=== PATIENT | female | born 1985 | race Two or more races ===

== ENCOUNTER 2017-12-06 10:18 | Inpatient (IN) | payer OTHER ==
[2017-12-06] MEDS ORDERED: PROMETHAZINE HCL 25 MG/1 ML VIAL IVPUSH ONE (12:00)
[2017-12-06] MEDS ORDERED: DEXTROSE 5%-LACTATED RINGERS 1,000 ML IV SCH (12:00)
[2017-12-06] MEDS ORDERED: BUTORPHANOL TARTRATE 1 MG/ML VIAL IVPUSH ONE (12:00)
[2017-12-06 12:16] VITALS: BMI 26.0
[2017-12-06 12:39] LABS: BASO % 0.5 % (0-2.0); HEMATOCRIT 39.7 % (32.4-45.2); HEMOGLOBIN 13.6 GM/dL (10.7-15.3); LYMPH % 10.5 % (8-40); MCH 31.1 pg (25.7-33.7); MCHC 34.2 g/dl (32.0-36.0); MEAN CELL VOLUME 90.8 fl (80-96); MEAN PLT VOLUME 11.1 fl (7.5-11.1); MONO % 3.3 % (3.8-10.2); NEUT % 85.7 % (42.8-82.8); PLATELET COUNT 167 K/MM3 (134-434); RBC 4.37 M/mm3 (3.60-5.2); RDW 13.4 % (11.6-15.6); WHITE BLOOD COUNT 11.5 K/mm3 (4.0-10.0)
[2017-12-06 12:53] LABS: INR 0.88 (0.82-1.09); PROTHROMBIN TIME (PATIENT) 9.9 SEC (9.7-13.0)
[2017-12-06 12:56] LABS: ACTIVATED PTT 29.5 SECONDS (26.9-34.4)
--- NOTE | 2017-12-06 12:58 | HP ---
Past Medical History - Primary Care Physician PCP:: Taras Carrasco - Admission Chief Complaint: 40 .1 weeks, labor History of Present Illness: 32 yo f g 1 p0 40.1 weeks, labor, cx 4 cm 100 vx -3 mi, fhr cat1 , irregular contraction History Source: Patient - Past Medical History ...: 1 ...Para: 0 ...Term: 0 ...: 0 ...Spon : 0 ...Induced : 0 ...Multiple Gestation: 0 ...LMP: 02/28/17 ... Weeks Gestation by Dates: 40.1 ...EDC by Dates: 12/05/17 ...EDC by Sono: 12/05/17 - Past Surgical History Hx Myomectomy: No Hx Transabdominal Cerclage: No - Smoking History Smoking history: Never smoked Have you smoked in the past 12 months: No - Alcohol/Substance Use Hx Alcohol Use: No - Social History History of Recent Travel: No Home Medications - Allergies Allergies/Adverse Reactions: Allergies Allergy/AdvReac Type Severity Reaction Status Date / Time No Known Allergies Allergy Verified 12/06/17 10:32 - Home Medications Home Medications: Ambulatory Orders Vit/Iron Fum/Folic AC [ Tablet] 1 each PO HS 12/05/17 Review of Systems - Review of Systems Constitutional: reports: No Symptoms Eyes: reports: No Symptoms HENT: reports: No Symptoms Neck: reports: No Symptoms Cardiovascular: reports: No Symptoms Respiratory: reports: No Symptoms Gastrointestinal: reports: No Symptoms Genitourinary: reports: No Symptoms Breasts: reports: No Symptoms Reported Musculoskeletal: reports: No Symptoms Integumentary: reports: No Symptoms Neurological: reports: No Symptoms Endocrine: reports: No Symptoms Hematology/Lymphatic: reports: No Symptoms Psychiatric: reports: No Symptoms Physical Exam - Maternity Vital Signs: Vital Signs Temperature 98.3 F 12/06/17 11:15 Pulse Rate 70 12/06/17 11:15 Respiratory Rate 20 12/06/17 11:15 Blood Pressure 117/70 12/06/17 11:15 O2 Sat by Pulse Oximetry (%) Constitutional: Yes: Well Nourished, No Distress, Calm Eyes: Yes: WNL, Conjunctiva Clear, EOM Intact HENT: Yes: WNL, Atraumatic, Normocephalic Neck: Yes: WNL, Supple, Trachea Midline Cardiovascular: Yes: WNL, Regular Rate and Rhythm Breast(s): Yes: WNL - Abdominal Exam/OB Fundal Height: 38 Number of Fetuses: Single Presentation: Vertex Contractions: Yes Regularity: Irregular Intensity: Mod/Strong Monitor Mode: External Heart Rate Location: [facility] Category: I - Vaginal Exam/OB Vaginal Bleediing: No Speculum Exam: No Dilatation (cm): 4 cm Effacement (%): 100 Amniotic Membrane Status: Intact Presentation: Vertex/Position Station: -3 - Physical Exam Musculoskeletal: Yes: WNL Extremities: Yes: WNL Edema: Yes Edema: LLE: Trace, RLE: Trace Deep Tendon Reflex Grade: Normal +2 Psychiatric: Yes: WNL - Labs Lab Results: CBC, BMP 12/06/17 11:55 Hemorrhage Risk Assessment - Risk Factors Medium Risk Factors: Yes: None High Risk Factors: Yes: None Risk Score: 1 Risk Level: Medium Risk Problem List - Problems (1) Postmaturity , 40-42 weeks gestation Code(s): O48.0 - POST-TERM (2) Labor established Code(s): [id number] - Assessment/Plan admit, fhm, pain management
[2017-12-06] MEDS ORDERED: ELECTROLYTE-148 SOLN 1,000 ML IV SCH ×3 (13:10→14:10)
[2017-12-06] MEDS ORDERED: FENTANYL/BUPIVACAINE/NS/PF - PCEA - 50 ML DISP.SYRIN EP ONE ×2 (13:10→18:53)
[2017-12-06 13:30] LABS: ANION GAP 12 (8-16); BLOOD UREA NITROGEN 8 mg/dL (7-18); CALCIUM 8.9 mg/dL (8.5-10.1); CHLORIDE 104 mmol/L (98-107); CO2 20 mmol/L (21-32); CREATININE 0.5 mg/dL (0.55-1.02); GLUCOSE,RANDOM 99 mg/dL (74-106); POTASSIUM 3.9 mmol/L (3.5-5.1); SODIUM 136 mmol/L (136-145)
[2017-12-06] MEDS ORDERED: NALOXONE HCL 0.4 MG/ML VIAL IVPUSH PRN (13:34)
[2017-12-06] MEDS ORDERED: LIDO 2%/EPI 1:200000 PRESRVFRE (20 ML SDVIAL) ONE (13:38)
[2017-12-06] MEDS ORDERED: BUPIVACAINE HCL/PF 0.25% (2.5MG/ML) 10 ML VIAL ONE ×2 (13:38→21:11)
[2017-12-06] MEDS ORDERED: FENTANYL/BUPIVACAINE/NS/PF - PCEA - 50 ML DISP.SYRIN EP SCH (13:45)
[2017-12-06] MEDS ORDERED: OXYTOCIN 30 UNITS in 0.9% NS 30 UNIT/500 ML INFUS.BAG IVPB SCH (14:00)
--- NOTE | 2017-12-06 15:40 | PN ---
Progress Note (short form) - Note Progress Note: 2p, cler, fhr cat i, irregular contraction, had epidural pm cx 4 cm 80 vx -2 arom Problem List - Problems (1) Postmaturity , 40-42 weeks gestation Code(s): O48.0 - POST-TERM (2) Labor established Code(s): [id number] -
[2017-12-06] MEDS ORDERED: OXYTOCIN 30 UNITS in 0.9% NS 30 UNIT/500 ML INFUS.BAG IVPB ONE (15:51)
--- NOTE | 2017-12-06 18:58 | PN ---
Progress Note (short form) - Note Progress Note: cx 7 cm, 80 vx -2 mr, fhr cat 1, regular contraction Problem List - Problems (1) Postmaturity , 40-42 weeks gestation Code(s): O48.0 - POST-TERM (2) Labor established Code(s): [id number] -
--- NOTE | 2017-12-06 21:20 | PN ---
Progress Note (short form) - Note Progress Note: cx 8 cm. 80 .op 1-/0 station, fhr cat 1, wants epidural top off Problem List - Problems (1) Postmaturity , 40-42 weeks gestation Code(s): O48.0 - POST-TERM (2) Labor established Code(s): [id number] -
--- NOTE | 2017-12-06 22:57 | PN ---
Progress Note (short form) - Note Progress Note: cx 8 cm, transverse nid pelvis arrest,, no further dilation advised c/s, case discussed via tape librarian with patient and her , FHR cat 1 Problem List - Problems (1) Postmaturity , 40-42 weeks gestation Code(s): O48.0 - POST-TERM (2) Labor established Code(s): [id number] -
[2017-12-06] MEDS ORDERED: CITRIC ACID/SODIUM CITRATE 30 ML UNIT-DOSE CUP PO ONE (23:00)
[2017-12-06] MEDS ORDERED: ceFAZolin SODIUM 1 GM VIAL ONE ×2 (23:33→23:40)
[2017-12-06] MEDS ORDERED: morphine SULFATE/Preservative Free 0.5 MG/ML (1cc Syringe) ONE ×6 (23:33)
[2017-12-06] MEDS ORDERED: MIDAZOLAM HCL 2 MG/2 ML SINGLE DOSE VIAL ONE (23:58)
[2017-12-07] MEDS ORDERED: BENZOCAINE 28 GM HEMORRHOIDAL OINTMENT PR PRN (00:12)
[2017-12-07] MEDS ORDERED: METHYLERGONOVINE MALEATE 0.2 MG/1 ML AMP IM PRN (00:12)
[2017-12-07] MEDS ORDERED: diphenhydrAMINE HCL 25 MG CAPSULE (FP) PO PRN (00:12)
[2017-12-07] MEDS ORDERED: IBUPROFEN 800 MG/8 ML IJ IVPB PRN ×2 (00:12→00:13)
[2017-12-07] MEDS ORDERED: BENZOCAINE 20% 57 GM BOTTLE TP PRN (00:12)
[2017-12-07] MEDS ORDERED: oxyCODONE HCL 5 MG TABLET PO PRN (00:12)
[2017-12-07] MEDS ORDERED: WITCH HAZEL 50% (TUCKS) 40 PAD/JAR PAD TP PRN (00:12)
[2017-12-07] MEDS ORDERED: ONDANSETRON 4 MG/2 ML VIAL IVPUSH PRN (00:13)
[2017-12-07] MEDS ORDERED: DEXTROSE 5%-LACTATED RINGERS 1,000 ML IV SCH (00:15)
[2017-12-07] MEDS ORDERED: OXYTOCIN 20 UNITS in 0.9% NS 20 UNIT/1,000 ML INFUS.BAG IV SCH (00:15)
[2017-12-07 00:52] LABS: ARTERIAL BLOOD GAS BASE EXCESS -3.4 meq/l (-2-2); ARTERIAL BLOOD GAS PCO2 52.7 mmHg (35-45); ARTERIAL BLOOD GAS pH 7.27 (7.35-7.45)
[2017-12-07 01:10] LABS: VENOUS PC02 38.4 mmHg (38-52); VENOUS PH 7.39 (7.32-7.42); VENOUS PO2 28.7 mmHg (28-48)
[2017-12-07 01:11] LABS: ARTERIAL BLD GAS O2 SATURATION 26.8 % (90-98.9); ARTERIAL BLOOD GAS PO2 19.8 mmHg (80-100)
[2017-12-07] MEDS ORDERED: OXYTOCIN 20 UNITS in 0.9% NS 20 UNIT/1,000 ML INFUS.BAG IV ONE (02:16)
[2017-12-07] MEDS ORDERED: ceFAZolin SODIUM 1 GM VIAL ONE ×2 (05:01→11:34)
[2017-12-07] MEDS ORDERED: DEXTROSE 5%-WATER - 50 ML IVPB ONE ×2 (05:01→11:34)
[2017-12-07] MEDS: CEFAZOLIN 1 GM in DEXTROSE 5%-WATER - 50 ML IVPB SCH ×2 (05:25→11:55)
--- NOTE | 2017-12-07 06:23 | PN ---
Post Progress Note - Subjective Subjective: c/o pain mild scale 3-4 c/o itching Post Day: 1 Type of Delivery: Primary C/S Vital Signs: Vital Signs Temperature 100.2 F H 12/07/17 03:00 Pulse Rate 82 12/07/17 03:00 Respiratory Rate 18 12/07/17 05:00 Blood Pressure 127/71 12/07/17 03:00 O2 Sat by Pulse Oximetry (%) 100 12/07/17 02:00 6.00 AM temp 99.2 Breast Exam: Yes: Soft, Other (plans to BF ). No: Engorged Uterus: Yes: Fundus Firm, Fundus below umbilicus, Non-tender Incision: Yes: Dressing dry and intact. No: Redness, Oozing Abdomen/GI: Yes: Abdomen soft (BS active ), Tender, Tolerating PO (pt has not taken po fluids yet ). No: Abdominal Distention, Passing flatus Lochia: Yes: Rubra Lochia, amount: Moderate Extremities: Yes: Calves non-tender Perineum: Yes: Intact Activity: Other (pt in bed with ware & scd in situ ) - Labs Labs: CBC WBC 11.5 K/mm3 (4.0-10.0) H 12/06/17 11:55 RBC 4.37 M/mm3 (3.60-5.2) 12/06/17 11:55 Hgb 13.6 GM/dL (10.7-15.3) 12/06/17 11:55 Hct 39.7 % (32.4-45.2) 12/06/17 11:55 MCV 90.8 fl (80-96) 12/06/17 11:55 MCH 31.1 pg (25.7-33.7) 12/06/17 11:55 MCHC 34.2 g/dl (32.0-36.0) 12/06/17 11:55 RDW 13.4 % (11.6-15.6) 12/06/17 11:55 Plt Count 167 K/MM3 (134-434) 12/06/17 11:55 MPV 11.1 fl (7.5-11.1) 12/06/17 11:55 Absolute Neuts (auto) 9.9 # 12/06/17 11:55 Neutrophils % 85.7 % (42.8-82.8) H 12/06/17 11:55 Lymphocytes % 10.5 % (8-40) 12/06/17 11:55 Monocytes % 3.3 % (3.8-10.2) L 12/06/17 11:55 Eosinophils % 0.0 % (0-4.5) 12/06/17 11:55 Basophils % 0.5 % (0-2.0) 12/06/17 11:55 Nucleated RBC % 0 % (0-0) 12/06/17 11:55 Other Findings, Remarks: RS CTA I/O , 900/800 ml , ware draining well Problem List - Problems (1) delivery delivered Code(s): O82 - ENCOUNTER FOR DELIVERY WITHOUT INDICATION (2) examination following delivery Code(s): Z39.2 - ENCOUNTER FOR ROUTINE FOLLOW-UP Assessment/Plan post c/section day # 1, 6 hrs post op stable , mild elevation of temp possible due to c/section due to failure to progress in labor . Plan cbc today ct IV Ancef encourage po fluids , ambulation after catheter is taken out encourage deep breathing
--- NOTE | 2017-12-07 08:39 | PN ---
Progress Note (short form) - Note Progress Note: Post op day #1.S/p c Section under epidural anesthesia with duramorph uneventful.Patient stable and haslittle pain for which she is on medication.No any anesthesia related problem.Patient DC from the anesthesia care.
--- NOTE | 2017-12-07 08:57 | OP ---
DATE OF OPERATION: 12/06/2017 PREOPERATIVE DIAGNOSIS: , 40 weeks, labor; failure to dilate and transverse pelvic arrest. SURGEON: Jaylyn Carrasco M.D. PIPING MANAGER: ANESTHESIA: Epidural. ANESTHESIOLOGIST: Mendel Cherry M.D. ESTIMATED BLOOD LOSS: 500 mL. FINDINGS: Baby's Apgars were 9 and 9. ROT position. DESCRIPTION OF PROCEDURE: The patient was taken to the operating room and had adequate epidural anesthesia. Abdomen and perineum were prepped and draped. A Pfannenstiel abdominal skin incision was made. The abdominal wall was cut layer by layer, until the peritoneum was exposed and incised. Upon entering the abdominal cavity, the lower uterine segment was identified and the uterovesical fold of peritoneum established. The bladder was pushed down. Then, with the lower blade of the Rogerio retractor in the pelvis, a low transverse uterine incision was made. The incision was extended laterally. The amniotic sac was entered. Clear fluid. Head delivered from right occiput transverse position with a large caput. Nasopharynx was suctioned and live baby was delivered. Apgars were 9 and 9. The placenta was delivered manually. The uterine cavity was cleaned of all remaining tissue. The uterine incision was closed in 2 layers, the 1st layer with 0 Biosyn continuous suture and the 2nd layer with 0 Biosyn imbricating the 1st layer. The bladder flap was closed with 0 Biosyn continuous suture. Both tubes and ovaries were checked and were normal. No active bleeding was seen. All the lap, sponge and instrument counts were correct. Then the peritoneum was closed with 0 Biosyn continuous suture. The muscles were brought together with interrupted suture of 0 Biosyn. The fascia was closed with 0 Biosyn continuous suture, the subcutaneous fat with interrupted suture of 0 Biosyn, and the skin was closed with qi. The patient tolerated the procedure well, and left the OR in good condition. JAYLYN CARRASCO M.D. [id number]
[2017-12-08] MEDS ORDERED: BISACODYL 10 MG SUPP.RECT PR PRN (00:13)
[2017-12-08] MEDS: ACETAMINOPHEN 325 MG TABLET (FP) PO PRN ×2 (08:59→18:00)
[2017-12-08] MEDS: oxyCODONE HCL 5 MG TABLET PO PRN ×3 (09:00→22:14)
[2017-12-08] MEDS: SIMETHICONE 80 MG TAB.CHEW (FP) PO PRN ×3 (09:01→22:14)
[2017-12-08 09:07] LABS: BASO % 0.2 % (0-2.0); EOS % 0.2 % (0-4.5); HEMOGLOBIN 12.8 GM/dL (10.7-15.3); LYMPH % 7.9 % (8-40); MCH 31.9 pg (25.7-33.7); MCHC 34.7 g/dl (32.0-36.0); MEAN PLT VOLUME 11.3 fl (7.5-11.1); MONO % 4.5 % (3.8-10.2); NEUT % 87.2 % (42.8-82.8); PLATELET COUNT 156 K/MM3 (134-434); RBC 4.02 M/mm3 (3.60-5.2); RDW 13.8 % (11.6-15.6); WHITE BLOOD COUNT 16.6 K/mm3 (4.0-10.0)
--- NOTE | 2017-12-08 09:49 | PN ---
Post Progress Note - Subjective Subjective: 32 yo Para 1 status post primary , seen and evaluated. Doing well. Post Day: 1 Type of Delivery: Primary C/S Vital Signs: Vital Signs Temperature 98 F 12/07/17 22:00 Pulse Rate 78 12/07/17 22:00 Respiratory Rate 18 12/07/17 22:00 Blood Pressure 106/59 12/07/17 22:00 O2 Sat by Pulse Oximetry (%) 100 12/07/17 02:00 Breast Exam: Yes: Soft Uterus: Yes: Fundus above umbilicus Incision: Yes: Dressing dry and intact Lochia: Yes: Rubra Lochia, amount: Small Extremities: Yes: Calves non-tender Perineum: Yes: Intact Activity: Ambulating - Labs Labs: CBC WBC 16.6 K/mm3 (4.0-10.0) H D 12/08/17 06:00 RBC 4.02 M/mm3 (3.60-5.2) 12/08/17 06:00 Hgb 12.8 GM/dL (10.7-15.3) 12/08/17 06:00 Hct 37.0 % (32.4-45.2) 12/08/17 06:00 MCV 92.0 fl (80-96) 12/08/17 06:00 MCH 31.9 pg (25.7-33.7) 12/08/17 06:00 MCHC 34.7 g/dl (32.0-36.0) 12/08/17 06:00 RDW 13.8 % (11.6-15.6) 12/08/17 06:00 Plt Count 156 K/MM3 (134-434) 12/08/17 06:00 MPV 11.3 fl (7.5-11.1) H 12/08/17 06:00 Absolute Neuts (auto) 14.5 # 12/08/17 06:00 Neutrophils % 87.2 % (42.8-82.8) H 12/08/17 06:00 Lymphocytes % 7.9 % (8-40) L D 12/08/17 06:00 Monocytes % 4.5 % (3.8-10.2) 12/08/17 06:00 Eosinophils % 0.2 % (0-4.5) D 12/08/17 06:00 Basophils % 0.2 % (0-2.0) 12/08/17 06:00 Nucleated RBC % 0 % (0-0) 12/08/17 06:00 Assessment/Plan Status post primary Stable Ambulation Analgesia as needed Continue routine post op care
--- NOTE | 2017-12-08 16:37 | PATH ---
Surgical Pathology Report Patient Name: EDUARDO HOUSE Med. Rec. 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 Specimen(s) Received PLACENTA Clinical History 40.1 wks arrest of dilatation Final Diagnosis PLACENTA: THIRD TRIMESTER PLACENTA. TRIVASCULAR CORD. MEMBRANES WITH NO DIAGNOSTIC ABNORMALITIES. Electronically Signed Iain Hernandez M.D. Gross Description The specimen is received fresh labeled placenta and is a 620 gram, 20 x 15.5 x 3 cm. placenta with attached membranes and umbilical cord. The attached membranes are mucoid and insert marginally. The centrally attached umbilical cord measures 19 cm. in length and averages 1.2 cm. in diameter. No true knots or strictures are identified. Cut surface of the umbilical cord reveals 3 vessels. The surface is simms-blue with minimal fibrin deposition and appropriate caliber vessels. The maternal surface is red-brown with focal defects. Sectioning reveals red-brown, spongy parenchyma. No lesions are identified. Parts Clerk Plant Maintenance sections are submitted in three cassettes as follows: 1- membrane rolls and umbilical cord; 2-3- full thickness sections of placenta. AE/12/07/2017 ebram/12/07/2017
[2017-12-08] MEDS: IBUPROFEN 600 MG TABLET (FP) PO PRN (22:11)
--- NOTE | 2017-12-09 06:49 | PN ---
Progress Note (short form) - Note Progress Note: pod 3 s/p primary c/s , doing well,ambulating, passing gas CBC, BMP 12/08/17 06:00 12/06/17 11:55 Last Vital Signs Temp Pulse Resp BP Pulse Ox 98.4 F 71 18 118/68 100 12/08/17 21:00 12/08/17 21:00 12/08/17 21:00 12/08/17 21:00 12/07/17 02:00 abdomen soft, no distension, no cva incision dry, clean no calf tenderness plan cbc, ambulate Problem List - Problems (1) Postmaturity , 40-42 weeks gestation Code(s): O48.0 - POST-TERM (2) Labor established Code(s): [id number] -
[2017-12-09 10:26] VITALS: BP 122/79; PULSE 66; TEMP 98.9
[2017-12-09] MEDS: IBUPROFEN 600 MG TABLET (FP) PO PRN (11:03)
[2017-12-09] MEDS: ACETAMINOPHEN 325 MG TABLET (FP) PO PRN (11:04)
[2017-12-09] MEDS ORDERED: SENNOSIDES/DOCUSATE COMBO (SENNA PLUS) TABLET (UD) PO PRN (22:00)
--- NOTE | 2017-12-11 09:10 | DS ---
Physical Exam-WELLNESS SPECIALIST Vital Signs: Vital Signs Temperature 98.9 F 12/09/17 09:00 Pulse Rate 66 12/09/17 09:00 Respiratory Rate 20 12/09/17 09:00 Blood Pressure 122/79 12/09/17 09:00 O2 Sat by Pulse Oximetry (%) 100 12/07/17 02:00 Constitutional: Yes: Well Nourished, No Distress, Calm Eyes: Yes: WNL, Conjunctiva Clear, EOM Intact HENT: Yes: WNL, Atraumatic, Normocephalic Neck: Yes: WNL, Supple, Trachea Midline Cardiovascular: Yes: WNL, Regular Rate and Rhythm Respiratory: Yes: WNL, Regular, CTA Bilaterally Gastrointestinal: Yes: WNL ...Rectal Exam: Yes: WNL Renal/: Yes: WNL ....Post : Yes: Uterus firm, Uterus non-tender, Slight lochia rubra Breast(s): Yes: WNL Musculoskeletal: Yes: WNL Extremities: Yes: WNL Integumentary: Yes: WNL Neurological: Yes: WNL, Alert, Oriented ...Motor Strength: WNL Psychiatric: Yes: WNL, Alert, Oriented Labs: CBC, BMP 12/08/17 06:00 12/06/17 11:55 Delivery - Delivery Section: Primary, Low Flap Transverse (no complication) Type of Anesthesia: Epidural Episiotomy/Laceration: None EBL (cc): 500 Delivery, Single - Stages of Labor Date 1st Stage Initiatied: 12/06/17 Time 1st Stage Initiated: 00:00 Date of Delivery: 12/06/17 Time of Delivery: 23:54 Time Placenta Delivered: 23:55 Placenta: Yes: Expressed - Condition of Infant [employer]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 [place] Present: Yes Name: Freeman Estrada Gender: Female Weight: 6 lb 11 oz Total Hours ROM (Hrs/Mins): 9hrs 45min - 1 Minute Total Score: 9 5 Minutes Total Score: 9 - [place] Feeding Plan Initial Plan: Elected not to breastfeed exclusively throughout hospitalization Discharge Summary Reason For Visit: LABOR Procedures: Principal: primary LST c/s Hospital Course: no complication Condition: Good - Instructions Diet, Activity, Other Instructions: regular diet, no intercourse, folow up [facility] care 1 week, if fever, pain, heavy bleeding call MD Referrals: Taras Carrasco MD [Staff Physician] - Disposition: HOME - Home Medications Comprehensive Discharge Medication List: Ambulatory Orders Vit/Iron Fum/Folic AC [ Tablet] 1 each PO HS 12/05/17 Ibuprofen [Motrin -] 600 mg PO QID #28 tablet 12/09/17
== END 2017-12-09 11:20 | disposition home or self-care (01) | DRG 540 ==
LOC: JDEL 10:18 → JLDR 11:15 → J3W 12-07 02:40
PROVIDERS: ADMIT Obstetrics & Gynecology; ATTEND Obstetrics & Gynecology
PROC: 10D00Z1 Extraction of Products of Conception, Low, Open Approach (ICD-10-PCS; principal; 2017-12-06)
DX: O48.0 Post-term pregnancy (principal); O32.2XX0 Maternal care for transverse and oblique lie, not applicable or unspecified; Z3A.40 40 weeks gestation of pregnancy; Z37.0 Single live birth
CPT/HCPCS: 36415; 36600; 80048; 82803; 85025; 85610; 85730; 86593; 86850; 86900; 86901; 88307-TC

== ENCOUNTER 2022-10-04 23:10 | Inpatient (IN) | payer OTHER ==
[2022-10-05 00:36] VITALS: BMI 29.0
[2022-10-05] MEDS: ELECTROLYTE-148 SOLN 1,000 ML IV SCH ×2 (03:00)
[2022-10-05] MEDS ORDERED: FENTANYL/BUPIVACAINE/NS/PF - PCEA - 50 ML DISP.SYRIN EP ONE (03:07)
[2022-10-05] MEDS ORDERED: FENTANYL CITRATE/PF 50 MCG/ML VIAL ONE (03:16)
[2022-10-05] MEDS ORDERED: BUPIVACAINE HCL/PF 0.25% (2.5MG/ML) 10 ML VIAL ONE (03:16)
[2022-10-05] MEDS ORDERED: NALOXONE HCL 0.4 MG/ML VIAL IVPUSH PRN (03:43)
[2022-10-05] MEDS ORDERED: FENTANYL/BUPIVACAINE/NS/PF - PCEA - 50 ML DISP.SYRIN EP SCH (03:45)
[2022-10-05] MEDS ORDERED: IBUPROFEN 800 MG/8 ML IJ IVPB PRN (05:34)
[2022-10-05] MEDS ORDERED: ACETAMINOPHEN 325 MG TABLET (FP) PO PRN (05:34)
[2022-10-05] MEDS ORDERED: CITRIC ACID/SODIUM CITRATE 30 ML UNIT-DOSE CUP PO ONE (05:45)
[2022-10-05] MEDS ORDERED: ONDANSETRON 4 MG/2 ML VIAL ONE (06:04)
[2022-10-05] MEDS ORDERED: ceFAZolin SODIUM 1 GM VIAL ONE (06:04)
[2022-10-05] MEDS ORDERED: KETOROLAC TROMETHAMINE 30 MG/1 ML VIAL ONE (06:04)
[2022-10-05] MEDS ORDERED: DEXAMETHASONE SOD PHOSPHATE 4 MG/1 ML VIAL ONE (06:04)
[2022-10-05] MEDS ORDERED: OXYTOCIN 30 UNITS in 0.9% NS 30 UNIT/500 ML INFUS.BAG IVPB ONE (06:05)
[2022-10-05] MEDS ORDERED: morphine SULFATE (PF) 1 MG/2 ML SYRINGE ONE (06:27)
[2022-10-05] MEDS: OXYTOCIN 20 UNITS in 0.9% NS 20 UNIT/1,000 ML INFUS.BAG IV SCH (07:15)
[2022-10-05] MEDS ORDERED: OXYTOCIN 20 UNITS in 0.9% NS 20 UNIT/1,000 ML INFUS.BAG IV ONE (07:19)
[2022-10-05] MEDS ORDERED: ONDANSETRON 4 MG/2 ML VIAL IVPUSH PRN (07:19)
[2022-10-05] MEDS ORDERED: AZITHROMYCIN IVPB 500 MG/250 ML BAG IVPB ONE ×2 (07:47→08:00)
[2022-10-05] MEDS ORDERED: oxyCODONE HCL 5 MG TABLET PO PRN (17:34)
[2022-10-06] MEDS: IBUPROFEN 600 MG TABLET (FP) PO PRN ×3 (01:57→21:03)
[2022-10-06] MEDS: SIMETHICONE 80 MG TAB.CHEW (FP) PO PRN ×3 (01:57→21:04)
[2022-10-06] MEDS: ELECTROLYTE-148 SOLN 1,000 ML IV SCH (03:35)
[2022-10-06] MEDS ORDERED: BISACODYL 10 MG SUPP.RECT RC PRN (05:34)
[2022-10-06 08:13] LABS: BASO % 0.7 % (0-2.0); EOS % 0.6 % (0-4.5); HEMATOCRIT 34.2 % (32.4-45.2); LYMPH % 13.3 % (8-40); MCH 32.3 pg (25.7-33.7); MCHC 35.1 g/dl (32.0-36.0); MEAN CELL VOLUME 91.8 fl (80-96); MONO % 4.9 % (3.8-10.2); NEUT % 80.5 % (42.8-82.8); PLATELET COUNT 156 10^3/uL (134-434); RBC 3.73 M/mm3 (3.60-5.2); RDW 13.7 % (11.6-15.6); WHITE BLOOD COUNT 10.8 K/mm3 (4.0-10.0)
[2022-10-07] MEDS: OXYTOCIN 20 UNITS in 0.9% NS 20 UNIT/1,000 ML INFUS.BAG IV SCH (19:56)
[2022-10-07 20:58] VITALS: RESP 18
[2022-10-08 08:40] LABS: BASO % 0.6 % (0-2.0); EOS % 2.5 % (0-4.5); HEMATOCRIT 36.6 % (32.4-45.2); HEMOGLOBIN 12.5 GM/dL (10.7-15.3); LYMPH % 14.2 % (8-40); MCH 31.9 pg (25.7-33.7); MCHC 34.3 g/dl (32.0-36.0); MEAN CELL VOLUME 93.1 fl (80-96); MEAN PLT VOLUME 10.1 fl (7.5-11.1); MONO % 4.4 % (3.8-10.2); NEUT % 78.3 % (42.8-82.8); PLATELET COUNT 206 10^3/uL (134-434); RBC 3.93 M/mm3 (3.60-5.2); RDW 14.3 % (11.6-15.6); WHITE BLOOD COUNT 10.2 K/mm3 (4.0-10.0)
[2022-10-08 08:54] VITALS: BP 114/77; PULSE 71; TEMP 97.7
[2022-10-08] MEDS: SIMETHICONE 80 MG TAB.CHEW (FP) PO PRN (10:33)
[2022-10-08] MEDS: IBUPROFEN 600 MG TABLET (FP) PO PRN (10:33)
== END 2022-10-08 13:30 | disposition home or self-care (01) | DRG 540 ==
LOC: JDEL 23:10 → JLDR 23:45 → J3W 10-05 09:00
PROVIDERS: ADMIT Student in an Organized Health Care Education/Training Program; ATTEND Student in an Organized Health Care Education/Training Program
PROC: 10D00Z1 Extraction of Products of Conception, Low, Open Approach (ICD-10-PCS; principal; 2022-10-05)
DX: O62.1 Secondary uterine inertia (principal); O66.41 Failed attempted vaginal birth after previous cesarean delivery; O34.211 Maternal care for low transverse scar from previous cesarean delivery; Z3A.40 40 weeks gestation of pregnancy; Z37.0 Single live birth
CPT/HCPCS: 36415; 80053; 85025; 85610; 85730; 86780; 86850; 86900; 86901; 88307-TC; C9803-CS; U0003; U0005